=== PATIENT | female | born 1975 | race African-American/Black ===

== ENCOUNTER 2025-02-05 17:50 | Emergency (ER) | payer MEDICAID ==
[~2025-02-05] VITALS: Ht 165.1 cm; Wt 90.6 kg
[2025-02-05 19:12] VITALS: BP 158/96; PULSE 110; RESP 16; TEMP 98.2; O2SAT 98
--- NOTE | 2025-02-05 19:13 | ED.PDOC ---
Musculoskeletal HPI Comments 49-year-old female presents to ER with right wrist compliant x 1 year. Patient reports that she has been experiencing a lump localized to radial aspect of right wrist x1 year that got worse x one week that she states occurred with her increased typing at work. Reports that she followed up with her PCP recently and was told that she had a ganglion cyst and was instructed to follow up for an x-ray right wrist but states that she never did. Denies any current pain and states she does have intermittent numbness/tingling to palm of right hand. Denies skin drainage or any further symptoms/complaints Chief Complaint: Upper Extremity Time Seen by MD: 18:07 Primary Care Provider: PARESH Reviewed Notes: Nurses Notes, Medications, Allergies Allergies: Coded Allergies: NO KNOWN ALLERGIES (Unverified , 10/05/10) Information Source: Patient Mode of Arrival: Ambulatory Past Medical History PAST MEDICAL HISTORY: Asthma, DM, HTN Past Medical History (Other): SVT Surgical History: Denies all surgeries Family History Family History: Unknown Social History Smoker: Non-Smoker Alcohol: Denies ETOH Use Drugs: Denies Drug Use Lives In: Home Constitutional: denies: chills, diaphoresis, fatigue, fever, malaise, sweats, weakness, others EENTM: denies: blurred vision, double vision, ear bleeding, ear discharge, ear drainage, ear pain, ear ringing, eye pain, eye redness, hearing loss, mouth pain, mouth swelling, nasal discharge, nose bleeding, nose congestion, nose pain, photophobia, tearing, throat pain, throat swelling, voice changes, others Respiratory: denies: cough, hemoptysis, orthopnea, SOB at rest, shortness of breath, SOB with excertion, stridor, wheezing, others Cardiovascular: denies: chest pain, dizzy spells, diaphoresis, Dyspnea on exertion, edema, irregular heart beat, left arm pain, lightheadedness, palpitations, PND, syncope, others Gastrointestinal: denies: abdomen distended, abdominal pain, blood streaked bowels, constipated, diarrhea, dysphagia, difficulty swallowing, hematemesis, melena, nausea, poor appetite, poor fluid intake, rectal bleeding, rectal pain, vomiting, others Genitourinary: denies: abnormal vagina bleeding, burning, dyspareunia, dysuria, flank pain, frequency, hematuria, incontinence, pain, , vagina discharge, urgency, others Neurological: denies: dizziness, fainting, headache, left sided numbness, left sided weakness, numbness, paresthesia, pre-existing deficit, right sided numbness, right sided weakness, seizure, speech problems, tingling, tremors, weakness, others Musculoskeletal: reports: others (As stated in HPI) Integumetry: reports: others (As stated in HPI) Allergic/Immunocompromised: denies: Difficulty Healing, Frequent Infections, Hives, Itching, others Hematologic/Lymphatic: denies: anemia, blood clots, easy bleeding, easy bruising, swollen glands, others Endocrine: denies: excessive hunger, excessive sweating, excessive thirst, excessive urination, flushing, intolerance to cold, intolerance to heat, unexplained weight gain, unexplained weight loss, others Psychiatric: denies: anxiety, bipolar disorder, depression, hopeless, panic disorder, schizophrenia, sleepless, suicidal, others Physical Exam General Appearance: No Apparent Distress, Obese HEENT: PERRL/EOMI Neck: Full Range of Motion, Non-Tender, Normal Respiratory: Chest Non-Tender, Lungs Clear, No Accessory Muscle Use, No Respiratory Distress, Normal Breath Sounds Cardiovascular: No Murmur, No Gallop, Regular Rate/Rhythm Breast Exam: Deferred Gastrointestinal: NOT DONE Genitalia: Deferred Pelvic: Deferred Rectal: Deferred Extremities: Normal capillary refill, Normal range of motion Musculoskeletal : Extremity Location: Wrist (1 cm x 1 cm cyst noted to radial aspect of right wrist without TTP. No erythema/drainage/ further skin changes noted. No TTP to right wrist/right hand noted. Patient able to fully move right wrist and right hand. 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 Was a procedure done?: No Sedation Sedation?: No Differential Diagnosis EXT Differential Diagnosis: Fracture, Dislocation, Neurovascular injury X-Ray, Labs, Meds, VS Vital Signs Date Time Temp Pulse Resp B/P (MAP) Pulse Ox O2 Delivery O2 Flow Rate FiO2 02/05/25 19:12 98.2 110 16 158/96 (116) 98 98.2 02/05/25 19:12 110 16 98 02/05/25 18:22 98.2 110 16 158/96 (298) 98 98.2 PATIENT: JAMIE BOYLE ACCT: [id number] UNIT: [id number] : 1975 LOC: ER ROOM / BED: / AGE / SEX: 49 / F ADM STATUS: REG ER SERVICE 01 ORDERING PHYSICIAN: LUCIEN RAY PROCEDURE(s): RWRI - R WRIST 3+ VIEW XRAY REASON: right wrist pain ORDER NUMBER(s): [id number], ACCESSION NUMBER(s): [id number] CLINICAL INDICATION: right wrist pain TECHNIQUE: 6 radiographic views of the right wrist were obtained. Comparison: None FINDINGS/IMPRESSION: There is no evidence of acute fracture or dislocation. The visualized joint space is well maintained. The alignment is anatomical. There is no radiopaque foreign body. ATED BY: GENARO CALLAHAN Jr., DO DICTATED DATE/TIME: 02/05/251928 SIGNED BY: GENARO CALLAHAN Jr., SIGNED DATE/TIME: 02/05/251928 CC: RIGHT WRIST X-RAY REVIEWED PATIENT NEUROVASCULARLY INTACT ADVISED TO FOLLOW UP WITH PCP AND ORTHOPEDIC HAND SPECIALIST IN 1-2 DAYS PATIENT VERBALIZED UNDERSTANDING AND AGREEABLE WITH CURRENT PLAN OF CARE ADVISED TO RETURN TO ER IMMEDIATELY IF SYMPTOMS WORSEN Images Reviewed?: Images reviewed and evaluated by me Time of 1ST Reevaluation: 19:12 Reevaluation 1ST: N/A Patient Education/Counseling: Diagnosis, Treatment, Prognosis, Need For Follow Up Family Education/Counseling: No Family Present Departure 1 Departure Time of Disposition: 19:40 Impression: Primary Impression: Ganglion cyst of wrist Qualified Codes: M67.431 - Ganglion, right wrist Disposition: 01 HOME / SELF CARE / HOMELESS Condition: Stable Critical Care Note Critical Care Time?: No Stability Stability form required: No Heart Score Heart Score: Heart Score Response (Comments) Value History N/A 0 EKG N/A 0 Age N/A 0 Risk Factors N/A 0 Troponin N/A 0 Total 0 LUCIEN RAY Feb 05, 2025 19:13
--- NOTE | 2025-02-05 19:32 | DVH ---
CLINICAL INDICATION: right wrist pain TECHNIQUE: 6 radiographic views of the right wrist were obtained. Comparison: None FINDINGS/IMPRESSION: There is no evidence of acute fracture or dislocation. The visualized joint space is well maintained. The alignment is anatomical. There is no radiopaque foreign body.
== END 2025-02-05 20:01 | disposition home or self-care (01) ==
LOC: ER 17:50
DX: M67.431 Ganglion, right wrist (principal); J45.909 Unspecified asthma, uncomplicated; E11.9 Type 2 diabetes mellitus without complications; I10 Essential (primary) hypertension
CPT/HCPCS: 73110